=== PATIENT | female | born 1985 | race Caucasian/White ===

== ENCOUNTER 2024-03-20 09:09 | Outpatient (AMB) | payer OTHER, SELFPAY ==
--- NOTE | 2024-03-20 09:10 | MHC.WMTHER ---
Intake Intake Visit Reasons: VIDEO OP Therapy Behavioral Health Assessment Weight Management Therapy Therapy Notes Details PT is a 38 y/o female who presents to initial visit at [facility] to continue counseling services with this provider. The PT has been attending counseling services on a monthly basis to manage adjustment to a medical condition that has been impacting her functioning in different areas of life. PT reports she is doing better in general, however she still has daily challenges due to illness Symptoms affecting performance and her personal life. The PT believes therapy is a helpful coping strategy to manage stress and to learn about practicing self-care habits for a balanced life. Today we focused on biopsychosocial assessment and we also Discussed and reviewed informed consent, practice policies, confidentiality and privacy, cancellation and communication procedures, billing policies, and fee agreements. PT signed all consents via the portal including telehealth consent. We will continue meeting monthly via Telehealth, and using CBT-based interventions with personal-center approach to address ongoing MH needs. 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 Precipitating Event Medical issues impacting functioning. Living Situation Current Living Situation Own At risk of losing current housing? No Satisfied with current living situation? Yes Comments Pt lives with her and 2 kids (6 and 4) Food/Weight/Diet Expectations of change N/A History/Relationship with food N/A History/Relationship with weight N/A History/Relationship with dieting N/A Social History Family history and relationship PT is 9 years ago. She has 2 siblings, she is the middle child. The oldest brother is 42, the youngest sister is 34. They are very close. Her parents are retired, and living in [place]. They are very supportive. Her has 2 siblings, his parents are also retired and can help with the kids if there is an emergency. Parental/Familial business transformation consultant obligations Al is 4 and Aj is 6. Developmental history and status Within normal limits in childhood. currently she struggles with memory, word finding, and stroke-like symptoms related to a health condition she has. Social support , family on her side and 's side. Community support Providers. Amish/Spirituality She considers a spiritual person but she doesn't practice. Raised in the shinto adventist. Cultural/Ethnic information . Mom-side Italians, dad's side of family are from [place]. Legal Involvement and History Current or historical involvement with the legal system? None reported. Education Highest grade completed [employer]. Preferred learning style Auditory, Verbal, Written, Learn by doing and Visual Currently enrolled in educational program? No Interested in further educational program? No Educational Interests/Skills Masters in business and administration. 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 No Meaningful activities Physical activity, outdoors, family trips, podcasts, reading. Financial Situation Describe current financial situation Comfortable Financial assistance? None Service Service? No Mental Health and Addiction Treatment Current/Past substance abuse? No Current/Past addictive behavior concerns? No Psychiatric history Started counseling for the first time in July 2022 due to overwhelming feelings after being diagnosed with a medical condition, which has impacted her functioning. Before that PT was never in treatment before. Denies any past HX of hospitalization/crisis or higher level of care for BH. Pt denies any history or current safety concerns around self-harm/other-harm. Medical and Physical Health Summary Additional Medical History not covered in history Brainstem migraine with aura (Basilar migraine), diagnosed on 05/2022 Sexual History concerns None reported Physical exam in the last year? Yes Pain Screening Current pain? Yes Pain in the last few months? Yes Comments Due to medical issues. Medications Is the patient compliant with medications? Yes (Current meds: Topamax 100 mg at day, Nortriptyline 25 mg. ) Does the patient have Perry Guardian in place? Not applicable Does the patient use complimentary health approaches? Yes (Cefaly machine.) Trauma/Abuse History History of trauma? No Questionnaires PHQ-9 Over the last 2 weeks, how often have you been bothered by any of the following problems? 1. Little interest or pleasure in doing things: not at all 2. Feeling down, depressed, or hopeless: not at all 3. Trouble falling or staying asleep, or sleeping too much: not at all 4. Feeling tired or having little energy: more than half the days 5. Poor appetite or overeating: not at all 6. Feeling bad about yourself - or that you are a failure or have let yourself or your family down: not at all 7. Trouble concentrating on things, such as reading the newspaper or watching television: several days 8. Moving or speaking so slowly that other people could have noticed. Or the opposite - being so fidgety or restless that you have been moving around a lot more than usual: not at all 9. Thoughts that you would be better off or of hurting yourself in some way: not at all Total score: 3 Depression Screening Interpretation: Negative Depression Screening Done: Yes 18969 - PHQ-9 Billing: Yes Source: Developed by Drs. Paresh Meraz, Tamie Spain, Marty Will and colleagues, with an educational leeanne from [employer]. Assessment & Plan Assessment & Plan (1) Adjustment disorder with anxious mood: Code(s): F43.22 - Adjustment disorder with anxiety Plan We will continue meeting on a monthly basis via Telehealth and working on same treatment goals. By the next visit Tx plan will be updated into this system. Next murray: 04/08/2024 at 9am, Telehealth. Telehealth Telehealth Telehealth Platform: [employer] Location of provider rendering services: other (Home office. [place], [place]) Location of patient: address on file Patient Identification confirmed using: Name, : Yes Telehealth method: video Patient verbally consented to treatment: Yes Patient verbally consented to billing insurance company: Yes Patient informed of any privacy concerns related to visit: Yes Minutes spent on Phone/Video with Pt.: 60 Coding Level of Care Code New Pt Tele Psy Diag Aldo ([id number]) Patient Type New Diagnoses Adjustment disorder with anxious mood F43.22 Time Spent (min) 60 Comment Start time:9:00am, End time:10:00am.
== END 2024-03-20 10:00 | disposition home or self-care (01) ==
LOC: HO.HOP 09:09
PROVIDERS: Visit Provider Counselor Mental Health
DX: F43.22 Adjustment disorder with anxiety (principal)
CPT/HCPCS: 90791

== ENCOUNTER → 2024-03-20 09:09 | Outpatient (BNVA) | payer OTHER, SELFPAY | PROVIDERS: Visit Provider Counselor Mental Health ==

== ENCOUNTER → 2024-04-08 09:04 | Outpatient (BNVA) | payer OTHER, SELFPAY | PROVIDERS: Visit Provider Counselor Mental Health ==

== ENCOUNTER → 2024-04-08 09:04 | Outpatient (AMB) | payer OTHER, SELFPAY ==
--- NOTE | 2024-04-08 09:05 | A.OFFWM_ITS ---
Intake Intake Visit Reasons: VIDEO OP Therapy Behavioral Health Assessment Weight Management Therapy Therapy Notes Details Objective: PT presents for a second visit to continue counseling services upon transferring care. Today we focused in completing annual treatment plan and finishing comp. assessment. Assessment/Response: * Mental status: fatigued, active headaches, mild functioning issues. alert, oriented X3, euthymic. * Risk reported/identified: None reported. Active engaged and agreed with Tx plan goals and interventions. Treatment plan Date: 04/08/2024 Problem 1: Medical Issues Impacting Daily Functioning Goal 1: Improve daily functioning by managing medical issues. Interventions: * Utilize Cognitive Behavioral Therapy for Chronic Pain (CBT-CP) to help the client develop coping strategies for managing pain and other symptoms. This will include identifying negative thought patterns about their condition and replacing them with more positive, realistic thoughts. The therapist will guide the client in practicing these strategies during sessions and encourage their application at home. * Implement Mindfulness-Based Stress Reduction (MBSR) techniques to reduce stress and enhance the client's awareness of their physical and mental state. Guided mindfulness exercises will be introduced to help the client focus on the present moment, which can mitigate the impact of pain and discomfort on their daily activities. The client will be encouraged to practice mindfulness daily. Problem 2: Anxiety Symptoms. Goal 1: Reduce anxiety symptoms while by enhance emotional regulation skills to improve overall well-being Interventions * Implement Cognitive Behavioral Therapy (CBT) to help the client identify and challenge irrational beliefs and cognitive distortions contributing to anxiety. The therapist will assist the client in developing a hierarchy of anxiety-provoking situations and gradually expose the client to these scenarios while employing relaxation techniques. * Incorporate Solution-Focused Brief Therapy (SFBT) to help the client identify past successes in managing anxiety and apply these strengths to current challenges. By focusing on solutions rather than problems, the client can develop a more positive outlook and actionable steps to manage anxiety in the future. * Client will demonstrate the use of at least two emotional regulation strategies during times of increased anxiety, as self-reported in session. * Employ Strengths-Based Cognitive Behavioral Therapy (SB-CBT) to help the client build on personal strengths and resilience. The therapist will work with the client to identify specific strengths that can be harnessed to regulate emotions, such as persistence, creativity, or humor, and practice these in structured exercises. * Use mindfulness practices from MBSR to help the client develop greater self- awareness and acceptance of their emotional experiences. The therapist will guide the client through mindfulness exercises that focus on observing emotions without judgment, enabling the client to respond to anxiety more adaptively. Modality: Individual counseling on a monthly basis via Telehealth. 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 Precipitating Event Medical issues impacting functioning. Living Situation Current Living Situation Own At risk of losing current housing? No Satisfied with current living situation? Yes Comments Pt lives with her and 2 kids (6 and 4) Food/Weight/Diet Expectations of change N/A History/Relationship with food N/A History/Relationship with weight N/A History/Relationship with dieting N/A Social History Family history and relationship PT is 9 years ago. She has 2 siblings, she is the middle child. The oldest brother is 42, the youngest sister is 34. They are very close. Her parents are retired, and living in [place]. They are very supportive. Her has 2 siblings, his parents are also retired and can help with the k ids if there is an emergency. Parental/Familial equine science instructor obligations Al is 4 and Aj is 6. Developmental history and status Within normal limits in childhood. currently she struggles with memory, word finding, and stroke-like symptoms related to a health condition she has. Social support , family on her side and 's side. Community support Providers. Synagogue/Spirituality She considers a spiritual person but she doesn't practice. Raised in the jain islam. Cultural/Ethnic information . Mom-side Italians, dad's side of family are from [place]. Legal Involvement and History Current or historical involvement with the legal system? None reported. Education Highest grade completed [employer]. Preferred learning style Auditory, Verbal, Written, Learn by doing and Visual Currently enrolled in educational program? No Interested in further educational program? No Educational Interests/Skills Masters in business and administration. 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 No Meaningful activities Physical activity, outdoors, family trips, podcasts, reading. Financial Situation Describe current financial situation Comfortable Financial assistance? None Service Service? No Mental Health and Addiction Treatment Current/Past substance abuse? No Current/Past addictive behavior concerns? No Psychiatric history Started counseling for the first time in July 2022 due to overwhelming feelings after being diagnosed with a medical condition, which has impacted her functioning. Before that PT was never in MH treatment before. Denies any past HX of hospitalization/crisis or higher level of care for BH. Pt denies any history or current safety concerns around self-harm/other-harm. Medical and Physical Health Summary Additional Medical History not covered in history Brainstem migraine with aura (Basilar migraine), diagnosed on 05/2022 Sexual History concerns None reported Physical exam in the last year? Yes Pain Screening Current pain? Yes Pain in the last few months? Yes Comments Due to medical issues. Medications Is the patient compliant with medications? Yes (Current meds: Topamax 100 mg at day, Nortriptyline 25 mg. ) Does the patient have Perry Guardian in place? Not applicable Does the patient use complimentary health approaches? Yes (Cefaly machine.) Trauma/Abuse History History of trauma? No Assessment & Plan Assessment & Plan (1) Adjustment disorder with anxious mood: Code(s): F43.22 - Adjustment disorder with anxiety Plan Continue meeting on a monthly basis. Next murray: 05/06/24 at 9am, Via Telehealth. Telehealth Telehealth Telehealth Platform: [facility] Location of provider rendering services: other Location of patient: address on file Patient Identification confirmed using: Name, : Yes Telehealth method: video Patient verbally consented to treatment: Yes Patient verbally consented to billing insurance company: Yes Patient informed of any privacy concerns related to visit: Yes Minutes spent on Phone/Video with Pt.: 60 Coding Level of Care Code Established Pt Tele Psytx >53 mins ([id number]) Patient Type Established Diagnoses Adjustment disorder with anxious mood F43.22 Time Spent (min) 60 Comment Start time: 9:00- /end time: 10:00am
== END ==
LOC: HO.HOP 09:04
PROVIDERS: Visit Provider Counselor Mental Health
DX: F43.22 Adjustment disorder with anxiety (principal)
CPT/HCPCS: 90837

== ENCOUNTER → 2024-05-06 09:15 | Outpatient (AMB) | payer OTHER, SELFPAY ==
--- NOTE | 2024-05-06 09:00 | MHC.WMTHER ---
Intake Intake Visit Reasons: VIDEO OP Therapy Behavioral Health Assessment Weight Management Therapy Therapy Notes Details Subjective: PT reports she was very anxious last wee after returning from vacation. Her headaches has been manageable, but now she's feeling vertigo-like sensations. Objective: PT presents for a follow up visit via Telehealth. Discussed functioning and processes sources of stress. ABC analysis, used CBT based strategies to manage responses and coping strategies for Sx management. Psychoeducation re: son's BH issues, provided with different resources for him and parenting methods to better support him. Coping plan for Anxiety discussed reinforcing self-care and enhancing work-life balance. Assessment/Response: Mental status: mild anxiety, but functioning well. Alert, oriented X3, Risk reported/identified: None reported. PT was open, active and engaged. She responded well to interventions. Plan: Continue with monthly sessions. Assessment & Plan Assessment & Plan (1) Adjustment disorder with anxious mood: Code(s): F43.22 - Adjustment disorder with anxiety Plan Continue current Tx plan and meeting on a monthly basis. Next murray: 06/03/24 at 9am, Via Telehealth. [facility]health [facility] Location of provider rendering services: other Location of patient: address on file Patient Identification confirmed using: Name, : Yes Telehealth method: video Patient verbally consented to treatment: Yes Patient verbally consented to billing insurance company: Yes Patient informed of any privacy concerns related to visit: Yes Minutes spent on Phone/Video with Pt.: 60 Coding Level of Care Code Established Pt Tele Psytx >53 mins ([id number]) Patient Type Established Diagnoses Adjustment disorder with anxious mood F43.22 Time Spent (min) 60 Comment Start time:9:00am, End time: 10:00am
== END ==
LOC: HO.HOP 09:16
PROVIDERS: Visit Provider Counselor Mental Health
DX: F43.22 Adjustment disorder with anxiety (principal)
CPT/HCPCS: 90837

== ENCOUNTER → 2024-05-06 09:15 | Outpatient (BNVA) | payer OTHER, SELFPAY | PROVIDERS: Visit Provider Counselor Mental Health ==

== ENCOUNTER → 2024-06-03 09:15 | Outpatient (BNVA) | payer OTHER, SELFPAY | PROVIDERS: Visit Provider Counselor Mental Health ==

== ENCOUNTER → 2024-06-03 09:15 | Outpatient (AMB) | payer OTHER, SELFPAY ==
--- NOTE | 2024-06-03 09:00 | A.OFFWM_ITS ---
Intake Intake Visit Reasons: VIDEO OP Therapy Behavioral Health Assessment Weight Management Therapy Therapy Notes Details Subjective: PT reports feeling well. Dealing with some stress and worry around her mother's health but she is doing better at managing her own health and prioritizing self- care. Objective: PT presents for a follow up counseling session via Telehealth. Talk therapy implemented to reflect on sources of stress and implementation of coping methods for Sx management. CPT-based interventions used, reflective feedback provided. Reviewed Sx management skills. Assessment/Response: * Mental status: WNL. * Risk reported/identified: None reported. PT open active and engaged. Responded well to modalities. Assessment & Plan Assessment & Plan (1) Adjustment disorder with anxious mood: Code(s): F43.22 - Adjustment disorder with anxiety Plan Follow up in 6 weeks due to holidays and patient's upcoming vacation end of June Next murray: 07/15/2024 at 9am, Telehealth. Also scheduled the following after that for 08/12/2024 at 9am Telehealth. Telehealth [facility]health [facility] Location of provider rendering services: other Location of patient: address on file Patient Identification confirmed using: Name, : Yes Telehealth method: video Patient verbally consented to treatment: Yes Patient verbally consented to billing insurance company: Yes Patient informed of any privacy concerns related to visit: Yes Minutes spent on Phone/Video with Pt.: 60 Coding Level of Care Code Established Pt Tele Psytx >53 mins ([id number]) Patient Type Established Diagnoses Adjustment disorder with anxious mood F43.22 Time Spent (min) 60 Comment Start time: 9:00am, End time:10:00am
== END ==
LOC: HO.HOP 09:15
PROVIDERS: Visit Provider Counselor Mental Health
DX: F43.22 Adjustment disorder with anxiety (principal)
CPT/HCPCS: 90837

== ENCOUNTER 2024-07-15 09:45 | Outpatient (AMB) | payer OTHER, SELFPAY ==
--- NOTE | 2024-07-15 09:05 | MHC.WMTHER ---
Intake Intake Visit Reasons: VIDEO OP Therapy Behavioral Health Assessment Weight Management Therapy Therapy Notes Details Subjective: The patient reports feeling rested after taking time off during the holidays but has been struggling with job dissatisfaction and burnout. She is currently considering her options for the new year. She mentions that her headaches have been consistent and believes they are influenced by ongoing tension with her . Objective: The patient presents for a follow-up visit via Telehealth. Reflective listening was utilized throughout the session. We discussed her current functioning, progress, and ongoing needs. Cognitive Processing Therapy (CPT) interventions were applied to address job-related concerns, medical issues, and family dynamics. Together, we explored strategies to manage the reported challenges and developed a coping plan. Constructive feedback was provided regarding her relationship dynamics with her , focusing on implementing an assertive communication approach and utilizing her support system effectively. Assessment/Response: Mental status: Oriented, Alert x3, no issues reported with concentration, acknowledges stress due to family dynamics. affect congruent with mood, appears somewhat tense when discussing job and family issues. Risk reported/identified: None PT was Engaged and cooperative throughout the session. Assessment & Plan Assessment & Plan (1) Adjustment disorder with anxious mood: Code(s): F43.22 - Adjustment disorder with anxiety Plan Continue monthly visits Next murray: 08/12/2024 at 9am, Telehealth Telehealth Telehealth Telehealth Platform: [facility] Location of provider rendering services: other Location of patient: address on file Patient Identification confirmed using: Name, : Yes Telehealth method: video Patient verbally consented to treatment: Yes Patient verbally consented to billing insurance company: Yes Patient informed of any privacy concerns related to visit: Yes Minutes spent on Phone/Video with Pt.: 56 Coding Level of Care Code Established Pt Tele Psytx >53 mins ([id number]) Patient Type Established Diagnoses Adjustment disorder with anxious mood F43.22 Time Spent (min) 56
== END 2024-07-15 11:19 | disposition home or self-care (01) ==
LOC: HO.HOP 09:45
PROVIDERS: Visit Provider Counselor Mental Health
DX: F43.22 Adjustment disorder with anxiety (principal)
CPT/HCPCS: 90837

== ENCOUNTER → 2024-07-15 09:45 | Outpatient (BNVA) | payer OTHER, SELFPAY | PROVIDERS: Visit Provider Counselor Mental Health ==

== ENCOUNTER → 2024-08-12 09:23 | Outpatient (AMB) | payer OTHER, SELFPAY ==
--- NOTE | 2024-08-12 09:06 | A.OFFWM_ITS ---
Intake Intake Visit Reasons: VIDEO OP Therapy Behavioral Health Assessment Weight Management Therapy Therapy Notes Details Subjective: The patient reports increased stress due to work demands and new medical concerns, specifically a lump in her breast. She has decided to begin applying for new jobs in response to these ongoing concerns. Additionally, she mentions that her headaches have worsened over the past couple of weeks, and she is currently experiencing moderate to high symptom severity. The patient has also been advocating for her needs, as she has not seen her doctor since February. The patient's Topamax dosage was adjusted from 100mg to 200mg days ago. Objective: The patient presents for a follow-up visit via Telehealth. We discussed her functioning and processed the challenges she is facing. Reflective listening was used to validate and normalize her feelings. Solution-Focused Brief Therapy (SFBT) was incorporated to help the patient identify past successes in managing anxiety and apply these strengths to her current challenges. We reviewed her coping skills and completed a relaxation exercise. Assessment/Response: * Mental Status: Anxiety and uncertainty present. Mild functional impairment due to pain and worry. * Risk: No risks identified. The patient responded well to the interventions, and the approach appeared appropriate for her needs. Assessment & Plan Assessment & Plan (1) Adjustment disorder with anxious mood: Code(s): F43.22 - Adjustment disorder with anxiety Plan Continue monthly visits Next murray: 09/17/2024 at 9am, [facility] Telehealth Platform: [email or web address] Location of provider rendering services: other Location of patient: address on file Patient Identification confirmed using: Name, : Yes Telehealth method: video Patient verbally consented to treatment: Yes Patient verbally consented to billing insurance company: Yes Patient informed of any privacy concerns related to visit: Yes Minutes spent on Phone/Video with Pt.: 60 Coding Level of Care Code Established Pt Tele Psytx >53 mins ([id number]) Patient Type Established Diagnoses Adjustment disorder with anxious mood F43.22 Time Spent (min) 60
--- OUTSIDE RECORDS SUMMARY | 2024-08-12 09:54 | XMS_ITS | Continuity of Care Document ---
Author Organization [facility] Address [address] [place] [address]- Care Team Providers Care Acetylene Torch Solderer Name Role Phone [place] Pond Primary Care Physician [place] [facility] [place]24 [place] 07/24/24 [facility] [address] [place] [address]- Encounter Diagnosis Breast mass, right(Discharge Diagnosis) - 07/17/24 Family history of breast cancer in mother(Discharge Diagnosis) - 07/17/24 Attending Physician: [place] Pond Encounter Type: Office Visit Allergies, Adverse Reactions, Alerts No Known Allergies Immunizations Given and Recorded Vaccine Date Status Refusal Reason SARS-CoV-2 (COVID-19) mRNA-1273 vaccine 11/28/20 R ecorded SARS-CoV-2 (COVID-19) mRNA-1273 vaccine 10/29/20 R ecorded SARS-CoV-2 (COVID-19) mRNA BNT-162b2 vac 11/06/20 Recorded Influenza Virus Vaccine (oldterm) 04/08/19 Recorde d tetanus/diphtheria/pertussis, acel(Tdap) 03/13/19 Recorded tetanus/diphtheria/pertussis, acel(Tdap) 08/02/13 Recorded Human Papillomavirus Vaccine 10/13/08 Recorded Human Papillomavirus Vaccine 06/16/08 Recorded Human Papillomavirus Vaccine 04/16/08 Recorded Meningococcal Conjugate Vaccine 02/27/03 Recorded tetanus-diphtheria toxoids (Td) 12/03/98 Recorded Hepatitis B Vaccine (old term) 12/25/96 Recorded Hepatitis B Vaccine (old term) 07/17/96 Recorded Hepatitis B Vaccine (old term) 06/02/96 Recorded Measles/Mumps/Rubella Virus Vaccine 06/02/96 Recor ded Measles/Mumps/Rubella Virus Vaccine 02/20/86 Recor ded diphtheria/tetanus/pertussis, acel(DTaP) 10/11/89 Recorded diphtheria/tetanus/pertussis, acel(DTaP) 05/08/86 Recorded diphtheria/tetanus/pertussis, acel(DTaP) 04/29/85 Recorded diphtheria/tetanus/pertussis, acel(DTaP) 02/25/85 Recorded diphtheria/tetanus/pertussis, acel(DTaP) 84 Recorded Haemophilus B Conj Vaccine (oldterm) 12/08/86 Polo rded Poliovirus Vaccine, Inactivated 05/08/86 Recorded Poliovirus Vaccine, Inactivated 04/12/85 Recorded Poliovirus Vaccine, Inactivated 02/25/85 Recorded Poliovirus Vaccine, Inactivated 84 Recorded Medications nortriptyline 25 mg oral capsule 1, capsule, By Mouth, Daily at bedtime, # 30 capsule, Refills 11, Maintenance, 12/04/23 8:11:00 AM EDT, Route to Pharmacy Electronically, [facility] #[id number], 168, cm, 08/09/23 10:07:00 EST, Height, 63.3, kg, 12/13/22 14:53:00 EDT, Dry Weight Start Date: 12/04/23 Status: Ordered Quantity: 30.0 Unit: capsule Repeat number: 1 topiramate 50 mg oral tablet 1 tablet, By Mouth, 2 times a day, # 60 tablet, 11 Refills, Maintenance, 12/04/23 8:11:00 AM EDT, [facility] #[id number], 168, cm, 08/09/23 10:07:00 EST, Height, 63.3, kg, 12/13/22 14:53:00 EDT, Dry Weight Start Date: 12/04/23 Status: Ordered Quantity: 60.0 Unit: tablet Repeat number: 1 Problem List Condition Confirmation Course Effective Dates Status Health St [facility] Informant Family history of breast cancer in mother Confirmed Active GERD without esophagitis Confirmed Active H/O infertility Confirmed Active Oligo-ovulation Confirmed Active Migraine Confirmed Active Diagnosis Diagnosis Type Effective Dates Health Status Cl inical Service Informant Breast mass, right Discharge Diagnosis 07/17/24 Family history of breast cancer in mother Discharge Diagnosis 07/17/24 Vital Signs Most recent to oldest [Reference Range]: 1 Height 168 cm (07/17/24 9:34 AM) Weight 62.3 kg (07/17/24 9:34 AM) Oxygen Saturation [94-100 %] 100 % (07/17/24 9:34 AM) Pulse Rate [55-90 bpm] 102 bpm *H* (07/17/24 9:34 AM) Body Mass Index [18.5-24.99 kg/m2] 22.07 kg/m2 (07/17/24 9:34 AM) Blood Pressure [90-138/55-84 mm Hg] 110/ 71mm Hg (07/17/24 9:34 AM) Blood pressure sites Arm, right (07/17/24 9:34 AM) Social History Social History Type Response Smoking Status Never (less than 100 in lifetime) entered on: 12/13/22 Sex Sex Representation Female (finding) Patient Care team information Care Team Personnel Name: Nancy Reddy RN Position: [facility] OB RN Member Role: Primary Care Nurse Name: [place] Pond Position: [facility] PCO Associate Professional Member Role: PCP Address: [address] [place] [address] Telecom: Name: Zoila Cui RN Position: S RN Member Role: Primary Care Nurse Name: Katt Emanuel RN Position: S RN Member Role: Primary Care Nurse Care Team Related Persons Name: JANINE HERNANDEZ Name: GEMA TAPIA Name: ALESSANDRO TAPIA Insurance Providers Guarantor name: [facility] Information #: 1 Payer: [employer] H[employer] Member Number: [id number] Policy Number: JOSE Group Number: [id number] Health Plan Information #: 2 Payer: [employer] H[employer] Member Number: [id number] Policy Number: JOSE Group Number: NA
== END ==
LOC: HO.HOP 09:23
PROVIDERS: Visit Provider Counselor Mental Health
DX: F43.22 Adjustment disorder with anxiety (principal)
CPT/HCPCS: 90837

== ENCOUNTER 2024-09-18 10:08 | Outpatient (AMB) | payer OTHER, SELFPAY ==
--- NOTE | 2024-09-18 10:00 | MHC.WMTHER ---
Intake Intake Visit Reasons: VIDEO OP Therapy Behavioral Health Assessment Weight Management Therapy Therapy Notes Details Subjective: The patient reports being busy with work trips, which tend to trigger her migraines. She describes her symptoms as typically debilitating, though today they are mild. Since her Tomapax dosage was increased, her symptoms have not worsened, which had been a concern over the past month. Objective: The patient presents for a follow-up visit via Telehealth. During the session, we discussed her daily functioning, routine, challenges, and ongoing needs. Mindfulness-Based Stress Reduction (MBSR) techniques were implemented to help manage stress and increase awareness of both her physical and mental state. Strengths-Based Cognitive Behavioral Therapy (SB-CBT) was used to identify and utilize her personal strengths?such as persistence, creativity, and humor?to enhance emotional regulation through structured exercises. Assessment/Response: Mental Status: Some stress noted, but the patient is functioning well despite experiencing pain. Risk: No risks identified. The patient was open, active, and engaged throughout the session. She responded positively to the interventions, and the modalities used appeared appropriate for her needs. Assessment & Plan Assessment & Plan (1) Adjustment disorder with anxious mood: Code(s): F43.22 - Adjustment disorder with anxiety Plan Continue monthly visits Next murray: 10/16/2024 at 9am, Telehealth Telehealth Telehealth Telehealth Platform: [employer] Location of provider rendering services: other Location of patient: address on file Patient Identification confirmed using: Name, : Yes Telehealth method: video Patient verbally consented to treatment: Yes Patient verbally consented to billing insurance company: Yes Patient informed of any privacy concerns related to visit: Yes Minutes spent on Phone/Video with Pt.: 60 Coding Level of Care Code Established Pt Tele Psytx >53 mins (69972) Patient Type Established Diagnoses Adjustment disorder with anxious mood F43.22 Time Spent (min) 60
--- OUTSIDE RECORDS SUMMARY | 2024-09-18 12:33 | XMS_ITS | Continuity of Care Document ---
Author Organization [facility] Address [address] [place] [address]- Care Team Providers Care Roustabout Hand Name Role Phone [place] Pond Primary Care Physician [phone] [facility] [place] Date(s): 07/21/24 - 08/20/24 [facility] [address] [place] [address]- Encounter Type: Triage Allergies, Adverse Reactions, Alerts No Known Allergies [...] 8:11:00 AM EDT, Route to Pharmacy Electronically, [facility] #[id number], 168, cm, 08/09/23 10:07:00 EST, Height, 63.3, kg, 12/13/22 14:53:00 EDT, Dry Weight Start Date: 12/04/23 Status: Ordered Quantity: 30.0 Unit: capsule Repeat number: 1 topiramate 100 mg oral tablet 1 tablet = 100 mg, By Mouth, 2 times a day, # 180 tablet, 3 Refills, Maintenance, 08/18/24 9:15:00 AM EST, Tablet, [facility] #[id number], Partial fill upon patient request if the prescription isfor a schedule II opioid drug., 168, cm, 08/11/24 15:28:00 EST, Height, 63.3, kg, 12/13/22 14:53:00EDT, Dry Weight Start Date: 08/18/24 Status: Ordered Quantity: 180.0 Unit: tablet Repeat number: 4 Problem List Condition Confirmation Course Effective Dates Status Health St [facility] Informant Family history of breast cancer in mother Confirmed Active GERD without esophagitis Confirmed Active H/O infertility Confirmed Active Oligo-ovulation Confirmed Active Migraine Confirmed Active Social History Social History Type Response Smoking Status Never (less than 100 in lifetime) entered on: 12/13/22 Sex Sex Representation Female (finding) Patient Care team information Care Team Personnel Name: Nancy Reddy RN Position: [facility] OB RN Member Role: Primary Care Nurse Name: [place] Pond Position: [facility] PCO Associate Professional Member Role: PCP Address: [address] [place] [address] Telecom: Name: Zoila Cui RN Position: S RN Member Role: Primary Care Nurse Name: Katt Emanuel RN Position: S RN Member Role: Primary Care Nurse Care Team Related Persons Name: JANINE HERNANDEZ Name: GEMA TAPIA Name: ALESSANDRO TAPIA Insurance Providers Guarantor name: NINO CONNELLY Health Plan Information #: 1 Payer: [employer] HMO Member Number: NA Policy Number: NA Group Number: NA
--- OUTSIDE RECORDS SUMMARY | 2024-09-18 12:33 | XMS_ITS | Continuity of Care Document ---
Author Organization [facility] Address [address] [place] [address]- Care Team Providers Care Heavy Antiarmor Weapons Infantryman Name Role Phone [place] Pond Primary Care Physician [phone] [id number] Date(s): 07/22/24 - 08/21/24 [facility] [address] [place] [address]- Encounter Type: Triage Allergies, Adverse Reactions, Alerts [...] 8:11:00 AM EDT, Route to Pharmacy Electronically, [facility] #[id number], 168, cm, 08/09/23 10:07:00 EST, Height, 63.3, kg, 12/13/22 14:53:00 EDT, Dry Weight Start Date: 12/04/23 Status: Ordered Quantity: 30.0 Unit: capsule Repeat number: 1 topiramate 100 mg oral tablet 1 tablet = 100 mg, By Mouth, 2 times a day, # 180 tablet, 3 Refills, Maintenance, 08/18/24 9:15:00 AM EST, Tablet, [facility] #[id number], Partial fill upon patient request if the [...] Team Personnel Name: Nancy Reddy RN Position: [facility] OB RN Member Role: Primary Care Nurse Name: [place] Pond Position: [facility] PCO Associate Professional Member Role: PCP Address: [address] [place] [address] Telecom: Name: Zoila Cui RN Position: S [...]
--- OUTSIDE RECORDS SUMMARY | 2024-09-18 12:34 | XMS_ITS | Clinical Summary ---
Author Organization [facility] Address [address] [place] [address] Phone Care Team Providers Care Fire Patroller Name Role Phone [place] Garcia Primary Care Provider [phone] Social History Tobacco Use Types Packs/Day Years Used Date Smoking Tobacco: Never Assessed Education Answer Date Recorded Are you interested in more education? Not on jose m e 11/04/2022 Are you concerned about learning? Not on file 11/04/2022 No 11/04/2022 No 11/04/2022 Digital Access Answer Date Recorded No 12/05/2022 No 12/05/2022 Reliable internet access at home? Not on file 12/05/2022 Device with a working camera? Not on file Sex and Gender Information Value Date Recorded Sex Assigned at Female 06/06/2022 8:44 AM EST Gender Identity Female 06/06/2022 8:44 AM EST Sexual Orientation Straight 06/06/2022 8: 44 AM EST Plan of Treatment Not on file Medical Devices Not on file Care Teams Fire Patroller Relationship Specialty Start Date End Date Monroe Garcia PA [address] [place] [address] PCP - General Unknown Provider Specialty 06/06/22 Additional Source Comments The information contained in this document represents components of the legal health record. It is not the complete legal health record.[facility]
--- OUTSIDE RECORDS SUMMARY | 2024-09-18 12:34 | XMS_ITS | Continuity of Care Document ---
Author Organization [facility] Address [address] [facility], [address]r d Floor, [address] [place] [address]- Care Team Providers Care Program Supervisor Name Role Phone [place] Pond Primary Care Physician Encounter [facility] [place] Date(s): 08/15/24 - 09/14/24 [facility] [address] [place] [address] [address]rd Floor, [address] [place] [address] Encounter Type: Triage Allergies, Adverse Reactions, Alerts [...] 8:11:00 AM EDT, Route to Pharmacy Electronically, [facility] #[id number], 168, cm, 08/09/23 10:07:00 EST, Height, 63.3, kg, 12/13/22 14:53:00 EDT, Dry Weight Start Date: 12/04/23 Status: Ordered Quantity: 30.0 Unit: capsule Repeat number: 1 topiramate 100 mg oral tablet 1 tablet = 100 mg, By Mouth, 2 times a day, # 180 tablet, 3 Refills, Maintenance, 08/18/24 9:15:00 AM EST, Tablet, [facility] #[id number], Partial fill upon patient request if the [...] Team Personnel Name: Nancy Reddy RN Position: [facility] OB RN Member Role: Primary Care Nurse Name: [place] Pond Position: [facility] PCO Associate Professional Member Role: PCP Address: [address] [place] [address] Telecom: Name: Zoila Cui RN Position: S RN Member Role: Primary Care Nurse Name: Katt Emanuel RN Position: S RN Member Role: Primary Care Nurse Care Team Related Persons Name: JANINE HERNANDEZ Name: GEMA TAPIA Name: ALESSANDRO TAPIA Insurance Providers Guarantor [facility] Plan Information #: 1 Payer: [employer] H[employer] Member Number: NA Policy Number: NA Group Number: NA
--- OUTSIDE RECORDS SUMMARY | 2024-09-18 12:34 | XMS_ITS | Continuity of Care Document ---
Author Organization [facility] ter Address [address] [place] [address]- Care Team Providers Care Environmental Monitoring Technician Name Role Phone [place] Pond Primary Care Physician [place] [facility] [place] - 09/[place]/[facility] [address] [place] [id number] Attending Physician: [place] Pond Admitting Physician: [place] Pond Referring Physician: [place] Pond Encounter Type: Pre-Outpt Allergies, Adverse Reactions, Alerts No Known Allergies [...] 8:11:00 AM EDT, Route to Pharmacy Electronically, [facility] #[id number], 168, cm, 08/09/23 10:07:00 EST, Height, 63.3, kg, 12/13/22 14:53:00 EDT, Dry Weight Start Date: 12/04/23 Status: Ordered Quantity: 30.0 Unit: capsule Repeat number: 1 topiramate 100 mg oral tablet 1 tablet = 100 mg, By Mouth, 2 times a day, # 180 tablet, 3 Refills, Maintenance, 08/18/24 9:15:00 AM EST, Tablet, [facility] #[id number], Partial fill upon patient request if the [...] Team Personnel Name: Nancy Reddy RN Position: [facility] OB RN Member Role: Primary Care Nurse Name: [place] Pond Position: [facility] PCO Associate Professional Member Role: PCP Address: [address] [place] [address] Telecom: Name: Zoila Cui RN Position: S RN Member Role: Primary Care Nurse Name: Katt Emanuel RN Position: S RN Member Role: Primary Care Nurse Care Team Related Persons Name: JANINE HERNANDEZ Name: GEMA TAPIA Name: ALESSANDRO TAPIA Insurance Providers Guarantor name: NINO SALVADORKHOA Health Plan Information #: 1 Payer: [employer] Member Number: [id number] Policy Number: NA Group Number: [id number] Health Plan Information #: 2 Payer: [employer] Member Number: [id number] Policy Number: NA Group Number: NA
--- OUTSIDE RECORDS SUMMARY | 2024-09-18 12:34 | XMS_ITS | Continuity of Care Document ---
Author Organization [facility] ter Address [address] [place] [address]- Care Team Providers Care Automatic Riveting Machine Operator Name Role Phone [place] Pond Primary Care Physician Encounter [facility] [place] Date(s): 07/17/24 - 09/03/24 [facility] [address] [place] [id number] Attending Physician: [place] Pond Admitting Physician: [...] 8:11:00 AM EDT, Route to Pharmacy Electronically, [facility] #[id number], 168, cm, 08/09/23 10:07:00 EST, Height, 63.3, kg, 12/13/22 14:53:00 EDT, Dry Weight Start Date: 12/04/23 Status: Ordered Quantity: 30.0 Unit: capsule Repeat number: 1 topiramate 100 mg oral tablet 1 tablet = 100 mg, By Mouth, 2 times a day, # 180 tablet, 3 Refills, Maintenance, 08/18/24 9:15:00 AM EST, Tablet, [facility] #[id number], Partial fill upon patient request if the [...] team information Care Team Personnel Name: Nancy Redyd RN Position: [facility] OB RN Member Role: Primary Care Nurse Name: [place] Pond Position: [facility] PCO Associate Professional Member Role: PCP Address: [address] [place] [address] Telecom: Name: Zoila Cui RN Position: S RN Member Role: Primary Care Nurse Name: Katt Emanuel RN Position: S RN Member Role: Primary Care Nurse Care Team Related Persons Name: JANINE HERNANDEZ Name: GEMA TAPIA Name: ALESSANDRO TAPIA Insurance Providers Guarantor name: NINO SALVADORKHOA Health Plan Information #: 1 Payer: [facility] SELECT HMO Member Number: [id number] Policy Number: NA Group Number: [id number] Health Plan Information #: 2 Payer: [facility] SELECT HMO Member Number: [id number] Policy Number: NA Group Number: NA
--- OUTSIDE RECORDS SUMMARY | 2024-09-18 12:34 | XMS_ITS | Continuity of Care Document ---
Author Organization [facility] Address [address] [facility], 3r d Floor, [address] [place] [address]- Care Team Providers Care Professor Of Mathematics Name Role Phone [place] Pond Primary Care Physician [phone] [id number]): [facility] - 09[facility]10/[facility] [address] [place] [address] 3rd Floor, [address] [place] [address] Encounter Type: Triage Allergies, Adverse Reactions, Alerts [...] 8:11:00 AM EDT, Route to Pharmacy Electronically, [facility] #[id number], 168, cm, 08/09/23 10:07:00 EST, Height, 63.3, kg, 12/13/22 14:53:00 EDT, Dry Weight Start Date: 12/04/23 Status: Ordered Quantity: 30.0 Unit: capsule Repeat number: 1 topiramate 100 mg oral tablet 1 tablet = 100 mg, By Mouth, 2 times a day, # 180 tablet, 3 Refills, Maintenance, 08/18/24 9:15:00 AM EST, Tablet, [facility] #[id number], Partial fill upon patient request if the [...] Team Personnel Name: Nancy Reddy RN Position: [facility] OB RN Member Role: Primary Care Nurse Name: [place] Pond Position: [facility] PCO Associate Professional Member Role: PCP Address: [address] [place] [address] Telecom: Name: Zoila Cui RN Position: S RN Member Role: Primary Care Nurse Name: Katt Emanuel RN Position: S RN Member Role: Primary Care Nurse Care Team Related Persons Name: JANINE HERNANDEZ Name: GEMA TAPIA Name: ALESSANDRO TAPIA Insurance Providers Guarantor name: [facility] Plan Information #: 1 Payer: [employer] Member Number: NA Policy Number: NA Group Number: NA
--- OUTSIDE RECORDS SUMMARY | 2024-09-18 12:34 | XMS_ITS | Continuity of Care Document ---
Author Organization [facility] Address [address] [place] [address]- Care Team Providers Care Trouble Tracer Name Role Phone [place] Pond Primary Care Physician [place] [facility] [place] - 09/10/24 [facility] [address] [place] [address]- Attending Physician: Zaria Saeed Admitting Physician: Zaria Saeed Referring Physician: Christophe ArDvaid Encounter Type: Triage Allergies, Adverse Reactions, Alerts [...] 8:11:00 AM EDT, Route to Pharmacy Electronically, [facility] #[id number], 168, cm, 08/09/23 10:07:00 EST, Height, 63.3, kg, 12/13/22 14:53:00 EDT, Dry Weight Start Date: 12/04/23 Status: Ordered Quantity: 30.0 Unit: capsule Repeat number: 1 topiramate 100 mg oral tablet 1 tablet = 100 mg, By Mouth, 2 times a day, # 180 tablet, 3 Refills, Maintenance, 08/18/24 9:15:00 AM EST, Tablet, [facility] #[id number], Partial fill upon patient request if the [...] Team Personnel Name: Nancy Reddy RN Position: [facility] OB RN Member Role: Primary Care Nurse Name: [place] Pond Position: [facility] PCO Associate Professional Member Role: PCP Address: [address] [place] [address] Telecom: Name: Zoila Cui RN Position: S RN Member Role: Primary Care Nurse Name: Katt Emanuel RN Position: S RN Member Role: Primary Care Nurse Care Team Related Persons Name: JANINE HERNANDEZ Name: GEMA TAPIA Name: ALESSANDRO TAPIA Insurance Providers Guarantor name: NINO CONNELLY [facility] Plan Information #: 1 Payer: [employer] Member Number: NA Policy Number: NA Group Number: NA
== END 2024-09-18 11:17 | disposition home or self-care (01) ==
LOC: HO.HOP 10:08
PROVIDERS: Visit Provider Counselor Mental Health
DX: F43.22 Adjustment disorder with anxiety (principal)
CPT/HCPCS: 90837

== ENCOUNTER 2024-10-16 09:10 | Outpatient (AMB) | payer OTHER, SELFPAY ==
--- NOTE | 2024-10-16 09:05 | A.OFFWM_ITS ---
Intake Intake Visit Reasons: VIDEO OP Therapy Behavioral Health Assessment Weight Management Therapy Therapy Notes Details Subjective: She reports experiencing a low mood, attributing some of the emotional downturn to the weather. Additionally, she is going through a flare-up of headaches, which she associates with overstimulation from a weekend alliance party (loud noises, bright lights). She notes that she is still in recovery from the event. Patient describes feeling slightly irritable by the end of the day, typically following periods of sensory overstimulation. She has been prioritizing her bedtime routine and finds this helpful. She expresses positive anticipation for upcoming time off and planned family trips, which she believes will support her overall well-being. Objective: PT presents for a f/up visit via telehealth. . PHQ-9 administered: Results do not indicate active symptoms of clinical depression. Discussed self-care strategies, bedtime hygiene, and continued coping techniques. Provided psychoeducation on the connection between sensory overstimulation and emotional/physical symptoms (e.g., headaches, irritability) Reviewed grounding techniques and pacing strategies to manage overstimulation. Introduced brief mindfulness practices for post-event recovery. Supported patient in planning and visualizing upcoming time off as a wellnes goal. Assessment/Response: * Mental status: The patient appeared oriented, engaged, and able to participate fully in the session. Her mood was described as ?low? but with hopeful under tones, and her affect was appropriate to the discussion. Thought processes were coherent and goal-directed, with no signs of cognitive impairment. Insight and judgment appeared intact. * Risk reported/identified: None reported. The patient was receptive to these interventions and appeared motivated to continue building on her current self-care routines. Questionnaires PHQ-9 Over the last 2 weeks, how often have you been bothered by any of the following problems? 1. Little interest or pleasure in doing things: not at all 2. Feeling down, depressed, or hopeless: not at all 3. Trouble falling or staying asleep, or sleeping too much: not at all 4. Feeling tired or having little energy: several days 5. Poor appetite or overeating: not at all 6. Feeling bad about yourself - or that you are a failure or have let yourself or your family down: not at all 7. Trouble concentrating on things, such as reading the newspaper or watching television: not at all 8. Moving or speaking so slowly that other people could have noticed. Or the opposite - being so fidgety or restless that you have been moving around a lot more than usual: not at all 9. Thoughts that you would be better off or of hurting yourself in some way: not at all Total score: 1 Depression Screening Interpretation: Negative Depression Screening Done: Yes 58879 - PHQ-9 Billing: Yes Source: Developed by Drs. Paresh Meraz, Tamie Spain, Marty Will and colleagues, with an educational leeanne from [employer]. Assessment & Plan Assessment & Plan (1) Adjustment disorder with anxious mood: Code(s): F43.22 - Adjustment disorder with anxiety Plan Recommended journaling or mood tracking to identify patterns in mood and physical symptoms Continue monthly visits Next murray: 11/11/2024 at 9am, Telehealth Telehealth Telehealth Telehealth Platform: [employer] Location of provider rendering services: other Location of patient: address on file Patient Identification confirmed using: Name, : Yes Telehealth method: video Patient verbally consented to treatment: Yes Patient verbally consented to billing insurance company: Yes Patient informed of any privacy concerns related to visit: Yes Minutes spent on Phone/Video with Pt.: 60 Coding Level of Care Code Established Pt Tele Psytx >53 mins (40090) Patient Type Established Diagnoses Adjustment disorder with anxious mood F43.22 Additional Codes PHQ-9 - 94157 - PHQ-9 Billing: Yes ([id number]) Time Spent (min) 60
--- OUTSIDE RECORDS SUMMARY | 2024-10-16 09:49 | XMS_ITS | Clinical Summary ---
Author Organization [facility] Address [address] [place] [phone] Phone Care Team Providers Care Lead Front Desk Agent Name Role Phone Monroe Garcia Primary Care Provider [phone] [phone] Social History Tobacco Use Types Packs/Day Years [...] Medical Devices Not on file Care Teams Lead Front Desk Agent Relationship Specialty Start Date End Date Monroe Garcia PA [address] [place] [address] PCP - General Unknown Provider Specialty 06/06/22 Additional Source Comments The information contained in this document represents components of the legal health record. It is not the complete legal health record.[facility]
== END 2024-10-16 10:04 | disposition home or self-care (01) ==
LOC: HO.HOP 09:10
PROVIDERS: Visit Provider Counselor Mental Health
DX: F43.22 Adjustment disorder with anxiety (principal)
CPT/HCPCS: 90837

== ENCOUNTER → 2024-10-16 09:10 | Outpatient (BNVA) | payer OTHER, SELFPAY | PROVIDERS: Visit Provider Counselor Mental Health ==

== ENCOUNTER 2024-11-11 09:37 | Outpatient (AMB) | payer OTHER, SELFPAY ==
--- NOTE | 2024-11-11 09:00 | A.OFFWM_ITS ---
Intake Intake Visit Reasons: VIDEO OP Therapy Behavioral Health Assessment Weight Management Therapy Therapy Notes Details Subjective: PT reports she has been ding better despite having high stress with work. She did her MR for the breast and is cleared, which has been great news for stress-reduction. Also continues having low-med headaches with active Symptoms, feeling her Sx are slowly getting worse. PT is switching insurances in December, hoping to find a new provider. Objective: PT presents for a f/up visit via Telehealth. . Active and reflective listening to process functioning, progress and ongoing needs/sources of stress. Used CPT, worked in stress management, and ways to continue working towards sustained happiness and living in the present. Reflected on her responses to stressfull situations, and explored alternative ones. Role reversal implemented. Constructive feedback provided for Sx management, and things under/out of her c ontol. Assessment/Response: * Mental status: Mild stress, but manageable. Euthymic. mild functioning issues due to headaches. * Risk reported/identified: None. Assessment & Plan Assessment & Plan (1) Adjustment disorder with anxious mood: Code(s): F43.22 - Adjustment disorder with anxiety Plan Continue monthly visits Next murray: 12/10/2024 at 9am, Telehealth. Telehealth Telehealth [facility]health [facility] Location of provider rendering services: other Location of patient: address on file Patient Identification confirmed using: Name, : Yes Telehealth method: video Patient verbally consented to treatment: Yes Patient verbally consented to billing insurance company: Yes Patient informed of any privacy concerns related to visit: Yes Minutes spent on Phone/Video with Pt.: 60 Coding Level of Care Code Established Pt Tele Psytx >53 mins (42406) Patient Type Established Diagnoses Adjustment disorder with anxious mood F43.22 Time Spent (min) 60
--- OUTSIDE RECORDS SUMMARY | 2024-11-11 10:38 | XMS_ITS | Clinical Summary ---
Author Organization [facility] Address [address] [place] [address] Phone Care Team Providers Care Stumper Feller Name Role Phone Monroe Garcia Primary Care Provider [phone] [phone] Social History Tobacco Use Types Packs/Day Years [...] Medical Devices Not on file Care Teams Stumper Feller Relationship Specialty Start Date End Date Monroe Garcia PA [address] [place] [address] PCP - General Unknown Provider Specialty 06/06/22 Additional Source Comments The information contained in this document represents components of the legal health record. It is not the complete legal health record.[facility]
== END 2024-11-11 10:13 | disposition home or self-care (01) ==
LOC: HO.HOP 09:37
PROVIDERS: Visit Provider Counselor Mental Health
DX: F43.22 Adjustment disorder with anxiety (principal)
CPT/HCPCS: 90837

== ENCOUNTER → 2024-11-11 09:37 | Outpatient (BNVA) | payer OTHER, SELFPAY | PROVIDERS: Visit Provider Counselor Mental Health ==

== ENCOUNTER 2024-12-10 09:21 | Outpatient (AMB) | payer OTHER, SELFPAY ==
--- NOTE | 2024-12-10 09:00 | A.OFFWM_ITS ---
Intake Intake Visit Reasons: VIDEO OP Therapy Behavioral Health Assessment Weight Management Therapy Therapy Notes Details Subjective: Patient reports experiencing an increase in headaches, which she attributes to heightened stress and anxiety related to her current work situation. She states she has been feeling more emotionally reactive than usual and noted that she had to leave a recent meeting due to becoming overwhelmed. Objective: Patient attended a follow-up session via Telehealth. She was engaged and communicative throughout the session. The focus of the visit was on exploring current functioning, daily routines, and stressors impacting her emotional and physical well-being. The patient was supported in processing recent emotional triggers, particularly related to workplace challenges, and in identifying how these situations are contributing to her increased anxiety and somatic symptoms, including headaches. Reflective listening and validation techniques were used to help her feel heard and understood. A strength-based approach guided the session, emphasizing her ability to navigate difficult emotions while identifying personal coping resources. Problem-solving strategies were introduced to begin exploring actionable steps and alternative approaches to manage her work-related stress. Psychoeducation was provided on the co nnection between chronic stress and physical symptoms, highlighting the importance of self-care and early intervention. Assessment/Response: * Mental status: Patient is alert and oriented to person, place, and time. Mood is anxious and affect is congruent. Thought process is linear and coherent. Insight and judgment are intact. * Risk reported/identified: None. Patient responded well to interventions and demonstrated motivation to explore coping tools and manage emotional responses. Assessment & Plan Assessment & Plan (1) Adjustment disorder with anxious mood: Code(s): F43.22 - Adjustment disorder with anxiety Plan Continue with monthly psychotherapy to monitor symptoms and support stress management. Explore potential workplace accommodations and refine coping strategies. * Next appointment scheduled for 01/07/2025 at 9:00 AM via Telehealth. Telehealth Telehealth Telehealth Platform: [employer] Location of provider rendering services: other (Home office. [place], [place]) Location of patient: address on file Patient Identification confirmed using: Name, : Yes Telehealth method: video Patient verbally consented to treatment: Yes Patient verbally consented to billing insurance company: Yes Patient informed of any privacy concerns related to visit: Yes Minutes spent on Phone/Video with Pt.: 60 Coding Level of Care Code Established Pt Tele Psytx >53 mins ([id number]) Patient Type Established Diagnoses Adjustment disorder with anxious mood F43.22 Time Spent (min) 60
== END 2024-12-10 10:08 | disposition home or self-care (01) ==
LOC: HO.HOP 09:21
PROVIDERS: Visit Provider Counselor Mental Health
DX: F43.22 Adjustment disorder with anxiety (principal)
CPT/HCPCS: 90837

== ENCOUNTER 2025-01-07 09:19 | Outpatient (AMB) | payer OTHER, SELFPAY ==
--- NOTE | 2025-01-07 09:00 | MHC.WMTHER ---
Intake Intake Visit Reasons: VIDEO OP Therapy Behavioral Health Assessment Weight Management Therapy Therapy Notes Details Subjective: PT reports felling well emotionally. She saw her new neurologist and was disappointing murray, felt the provider didn't hear her needs and did not understand the type of migraine he has. She is now looking for another opinion in another hospital since she has a new insurance. Not feeling in a terrible spot, however she knows it could be better. Objective: PT presents for a f/up visit via Telehealth. . Used reflective listening to process functioning, progress/needs and ongoing challenges with health management. Worked on lifestyle changes/adjustments to have a balance in between being able to enjoy while caring for her health or rest if she is in pain. Used strength-based and ACT techniques in today's interventions. Assessment/Response: Mental status: Disappointed but not depressed or anxious. Alert, oriented x3. Good functioning in general this morning. Impaired when pain increases, usually as the day progresses. Risk reported/identified: None PT was receptive, engaged, collaborative, and responded well to interventions. Assessment & Plan Assessment & Plan (1) Adjustment disorder with anxious mood: Code(s): F43.22 - Adjustment disorder with anxiety Plan Continue monthly visits Next murray: 02/05/2025 at 9am, Video Telehealth Telehealth Telehealth Platform: [employer] Location of provider rendering services: other (Home office. [place], [place]) Location of patient: address on file Patient Identification confirmed using: Name, : Yes Telehealth method: video Patient verbally consented to treatment: Yes Patient verbally consented to billing insurance company: Yes Patient informed of any privacy concerns related to visit: Yes Minutes spent on Phone/Video with Pt.: 60 Coding Level of Care Code Established Pt Tele Psytx >53 mins (55577) Patient Type Established Diagnoses Adjustment disorder with anxious mood F43.22 Time Spent (min) 60
== END 2025-01-07 10:06 | disposition home or self-care (01) ==
LOC: HO.HOP 09:19
PROVIDERS: Visit Provider Counselor Mental Health
DX: F43.22 Adjustment disorder with anxiety (principal)
CPT/HCPCS: 90837

== ENCOUNTER 2025-02-05 09:00 | Outpatient (AMB) | payer OTHER, SELFPAY ==
--- NOTE | 2025-02-05 09:00 | A.OFFWM_ITS ---
Intake Intake Visit Reasons: VIDEO OP Therapy Behavioral Health Assessment Weight Management Therapy Therapy Notes Details Subjective: The patient presents feeling upset about recent issues with her ?s extended family. She reports that her work situation remains highly stressful, but notes that things at home with her children and are going well. She has experienced an increase in headaches and is unsure of the cause. The patient recently saw a new provider at the same facility where she receives neurology services, but the outcomes were not satisfactory. She is actively exploring options for care outside the area. Objective: The patient attended a follow-up visit via telehealth. The session focused on processing recent family dynamics and their emotional impact. Cognitive-behavioral strategies were employed to help the patient identify and challenge unhelpful thoughts related to family conflict. Stress management techniques, including guided relaxation and mindfulness exercises, were introduced to address both work-related and somatic symptoms. Psychoeducation was provided regarding the relationship between stress and headache frequency. The patient was encouraged to track headache patterns and potential triggers. Problem-solving interventions were used to explore options for seeking alternative neurology care. Assessment/Response: * Mental status: Alert, oriented, mood congruent with situation, thought process logical and goal-directed. * Risk reported/identified: None. The patient was engaged, cooperative, and able to articulate her concerns and goals throughout the session. No acute distress or safety concerns were observed. Assessment & Plan Assessment & Plan (1) Adjustment disorder with anxious mood: Code(s): F43.22 - Adjustment disorder with anxiety Plan Continue monthly visits. Next appointment scheduled for 03/06/25 at 9:00 am via telehealth. Encourage ongoing use of stress management techniques and headache tracking. Patient to update on progress with neurology care options at next session. Telehealth Telehealth Telehealth Platform: [email or web address] Location of provider rendering services: other (Home office. [place], [place]) Location of patient: address on file Patient Identification confirmed using: Name, : Yes Telehealth method: video Patient verbally consented to treatment: Yes Patient verbally consented to billing insurance company: Yes Patient informed of any privacy concerns related to visit: Yes Minutes spent on Phone/Video with Pt.: 60 Coding Level of Care Code Established Pt Tele Psytx >53 mins ([id number]) Patient Type Established Diagnoses Adjustment disorder with anxious mood F43.22 Time Spent (min) 60
--- OUTSIDE RECORDS SUMMARY | 2025-02-05 09:50 | XMS_ITS | Clinical Summary ---
Author Organization [facility] Address [address] [facility] [address] [place] [address] Phone Care Team Providers Care Lubrication Servicer Name Role Phone Monroe Garcia Primary Care Provider [phone] [phone] Social History Tobacco Use Types Packs/Day Years [...] with a working camera? Not on file Comments Unknown Sex and Gender Information Value Date Recorded Sex Assigned at Female 06/06/2022 8:44 AM EST Legal Sex Female 8:40 AM EST Gender Identity Female 06/06/2022 8:44 AM EST Sexual Orientation Straight 06/06/2022 8: 44 AM EST Plan of Treatment Upcoming Encounters Date Type Department Care Team (Late st Contact Info) Description 10/12/2025 11:00 AM EDT Office Visit [facility], Department of Neurology [address] [place] [address] Dawood Kirkpatrick MD, MPH [address] [facility], [address] [place] [phone] [email or web address] Health Maintenance Due Date Last Done Comments Adult Td,Tdap Booster 1984 DEPRESSION SCREENING 1996 SMOKING Hx and SMOKELESS TOB ACCO SCREENING 1997 HEPATITIS C SCREENING 2002 HIV ONE-TIME SCREENING (18-6 5 YEARS) 2002 PAP SMEAR 2005 COVID-19 VACCINE (2023-2 5 season) 2024 MAMMOGRAM 2024 HEPATITIS A VACCINES Aged Out No long er eligible based on patient's age to complete this topic HIB VACCINES Aged Out No longer eligi ble based on patient's age to complete this topic MENINGOCOCCAL VACCINES (ACWY) Aged Out No longer eligible based on patient's age to complete this topic MENINGOCOCCAL VACCINES (B) Aged Out N o longer eligible based on patient's age to complete this topic PNEUMOCOCCAL VACCINES (0-49 years) Aged Out No longer eligible based on patient's age to complete this topic Medical Devices Not on file Insurance [facility] [employer] POS [facility] [employer] POS [facility] [employer] [facility] [employer] [facility] [employer] [employer] [facility] POS Care Teams Lubrication Servicer Relationship Specialty Start Date End Date Monroe Garcia PA [facility] [place] [address] PCP - General Unknown Provider Specialty 06/06/22 Additional Source Comments The information contained in this document represents components of the legal health record. It is not the complete legal health record.[facility]
== END 2025-02-05 10:16 | disposition home or self-care (01) ==
LOC: HO.HOP 09:29
PROVIDERS: Visit Provider Counselor Mental Health
DX: F43.22 Adjustment disorder with anxiety (principal)
CPT/HCPCS: 90837

== ENCOUNTER 2025-03-06 09:00 | Outpatient (AMB) | payer OTHER, SELFPAY ==
--- NOTE | 2025-03-06 09:05 | MHC.WMTHER ---
Intake Intake Visit Reasons: VIDEO OP Therapy Behavioral Health Assessment Weight Management Therapy Therapy Notes Details Subjective: Patient reports feeling motivated and optimistic. Her Botox treatment for headaches was approved, and she will soon see a new provider near [place]. She reflected on enjoyable summer activities and noted changes in her routine since school started. She reports improved management of work-related stress, focusing on controllable factors as previously discussed, and remains open to new job opportunities without feeling rushed. Objective: The patient presented for a follow-up visit via telehealth. During the session, her current functioning, progress toward established goals, ongoing challenges, and support needs were reviewed. Cognitive-behavioral therapy (CBT) techniques were implemented to reinforce adaptive coping strategies for stress management. Solution-focused interventions were utilized to help the patient identify and build on recent successes. Psychoeducation was provided regarding stress reduction and self-care practices. The session also included exploration of the patient?s adjustment to recent routine changes, with problem-solving strategies facilitated to address new challenges. Throughout the session, the patient was cooperative, engaged, and demonstrated no acute distress or safety concerns. Assessment/Response: Mental status: WNL Risk reported/identified: none Assessment & Plan Assessment & Plan (1) Adjustment disorder with anxious mood: Code(s): F43.22 - Adjustment disorder with anxiety Plan -Encourage ongoing use of coping strategies discussed in session. -Complete annual review with a new tx plan and PHQ-9 at the next visit. -Next appointment in 1 month. Next murray: 04/02/2025 at 9am. - video Telehealth Telehealth Telehealth Platform: [employer] Location of provider rendering services: other (Home office. [place], [place]) Location of patient: address on file Patient Identification confirmed using: Name, : Yes Telehealth method: video Patient verbally consented to treatment: Yes Patient verbally consented to billing insurance company: Yes Patient informed of any privacy concerns related to visit: Yes Minutes spent on Phone/Video with Pt.: 55 Coding Level of Care Code Established Pt Tele Psytx >53 mins ([id number]) Patient Type Established Diagnoses Adjustment disorder with anxious mood F43.22 Time Spent (min) 55
--- OUTSIDE RECORDS SUMMARY | 2025-03-06 10:17 | XMS_ITS | Clinical Summary ---
Author Organization [facility] Address [address] [facility] [address] [place] [address] Phone Care Team Providers Care Box Attacher Name Role Phone Monroe Garcia Primary Care Provider [phone] [phone] Social History Tobacco Use Types Packs/Day Years [...] Description 10/12/2025 11:00 AM EDT Office Visit [facility], Department of Neurology [address] [place] [address] Dawood Kirkpatrick MD, MPH [address] [facility], [address] [place] [phone] [email or web address] Health Maintenance Due Date Last Done [...] topic Medical Devices Not on file Insurance [facility] [employer] POS [facility] [employer] [employer] [facility] [employer] POS [facility] [employer] POS [facility] [employer] POS [facility] [employer] POS Care Teams Box Attacher Relationship Specialty Start Date End Date Monroe Garcia PA [facility] [place] [address] PCP - General Unknown Provider Specialty 06/06/22 Additional Source Comments The information contained in this document represents components of the legal health record. It is not the complete legal health record.[facility]
== END 2025-03-06 10:10 | disposition home or self-care (01) ==
LOC: HO.HOP 09:32
PROVIDERS: Visit Provider Counselor Mental Health
DX: F43.22 Adjustment disorder with anxiety (principal)
CPT/HCPCS: 90837